=== PATIENT | female | born 1985 | race Caucasian/White ===

== ENCOUNTER 2022-02-07 05:48 | Day surgery (SDC) | payer OTHER ==
[~2022-02-07] VITALS: Ht 162.6 cm; Wt 51.8 kg
[~2022-02-07 05:48] MED LIST: MULTI VITAMIN1 EACH PO; PRILOSEC10 M1 PO; VITAMIN D310 MC4 PO
--- NOTE | 2022-02-07 08:45 | NUR ---
PT ALERT,ORIENTED AND SUPPORTED BY HER MEL. BOTH DEALING WELL WITH HAVING TO WAIT FOR AN EMERGENT SITUATION DR CHOUDHARY IS ATTENDING TO. PT SEEMS INFORMED, ALL QUESTIONS ASKED ANSWERED.DR CHOUDHARY IN TO VISIT WITH PT. GAVE PT BLESSING AND WILL FOLLOW
--- NOTE | 2022-02-07 10:38 | NUR ---
02/07/22 1038 [address] PATIENT ARRIVES TO PACU AWAKE OFF/ON, BUT VERY DROWSY. SLEEPING WHEN NOT STIMULATED. RESP EVEN AND UNLABORED, ROOM AIR SATS >92%. FOLLOWS COMMANDS TO DEEP BREATHE AND COUGH. DENIES PAIN OR NAUSEA. WARM BLANKETS GIVEN PER REQUEST.
--- NOTE | 2022-02-07 11:09 | NUR ---
PT ARRIVES TO DS TREATMENT ROOM FROM PACU VIA STRETCHER AWAKE AND ALERT. PT DENIES ANY NAUSEA AND IS PROVIDED CRACKERS AND TLINGIT & HAIDA SODA PER REQUEST. PT RATES PAIN IN LOWER ABD 2/10 "DULL, ACHEY, CRAMPING." ROBERT KEITA ON WARM, PT SPOUSE AT BEDSIDE. CALL LIGHT IN REACH, DC CRITERIA EXPLAINED.
--- NOTE | 2022-02-07 11:32 | NUR ---
1124: WELCH EMPTIED OF 100 MLS YELLOW URINE, 2 MLS CLEAR FLUID ASPIRATED FROM WELCH BALLOON AND WELCH EASILY REMOVED; PT TOLERATES WELL AND WOULD LIKE TO "SIT ON THE TOILET." PT SITS AT SIDE OF BED PRIOR TO STANDING, DENIES DIZZINESS OR NAUSEA WITH POSITION CHANGE AND AMBULATES WITH STEADY GAIT TO BATHROOM. PT ABLE TO VOID QS PINKISH-RED URINE WITH NO CLOTS PRESENT. NEW PERIPAD AND MESH PANTIES PROVIDED. PT BACK TO STRETCHER WITH ROBERT HUGGER AND BLANKETS IN PLACE. SPOUSE REMAINS AT BEDSIDE.
[2022-02-07] MEDS ORDERED: IBUPROFEN800 MG PO (11:49)
[2022-02-07] MEDS ORDERED: PERCOCET 5-3251 EACH PO (11:49)
[2022-02-07] MEDS ORDERED: ONDANSETRON ODT8 MG PO (11:50)
--- NOTE | 2022-02-07 13:00 | NUR ---
[id number]: PT UP TO BATHROOM WITH RN ASSIST, ABLE TO VOID 200 MLS PINK URINE WITH NO CLOTS PRESENT. PT STATES PAIN IS TOLERABLE AND IS FAVORABLE OF GETTING DRESSED AND DC HOME. PT SPOUSE REMAINS IN ROOM WHILE PT DRESSES SELF. [id number]: PT OPENS CURTAIN AND DC INSTRUCTIONS PRESENTED VERBALLY AND WRITTEN TO PT AND SPOUSE. IV REMOVED AT THIS TIME WITH COBAN PRESSURE DRESSING PLACED. PT ABLE TO TRANSFER SELF FROM STRETCHER TO WC WITH STEADY GAIT. PT DC FROM DS TREATMENT ROOM VIA WC TO SPOUSE WAITING IN PERSONAL VEHICLE AT MAIN HOSPITAL ENTRANCE TO HOME.
--- NOTE | 2022-02-09 09:40 | OR ---
[facility] [address] [place], [place] [address] Signed DATE OF OPERATION: 02/07/2022 SURGEON: Amy Crockett MD COLLEGE SPECIALIST: ROSY Grace DO. PREOPERATIVE DIAGNOSES: Pelvic pain, history of endometriosis. POSTOPERATIVE DIAGNOSES: Pelvic pain, history of endometriosis with pelvic adhesions. PROCEDURES: Total laparoscopic hysterectomy, bilateral salpingectomy, cystoscopy. ANESTHESIA: General ET. ESTIMATED BLOOD LOSS: 25 mL. DRAINS: Pacheco catheter. INDICATIONS AND FINDINGS: The patient is a 36-year-old female who was diagnosed with endometriosis approximately 9 months ago after a long history of pelvic pain and dysmenorrhea. She has been using the Mirena since that time and has recently developed an increase in her pain. Because of her history and the increase in her pain, she wished to proceed with definitive surgery. At the time of surgery, exam under anesthesia was normal. At the time of laparoscopy, she did have recurrent endometriosis over the posterior surface of the uterus and on the right pelvic sidewall. There were adhesions around the patient's left tube and ovary as well. DESCRIPTION OF PROCEDURE: The patient was prepped and draped in the dorsal lithotomy position. The weighted speculum was placed. The anterior lip of the cervix was visualized and grasped with a single-tooth tenaculum. The endocervical canal was then dilated and the IUD removed without any difficulty. The uterus sounded to 7 cm. The VCare cannula was then Electronically Signed By: AMY CROCKETT MD 02/09/22 0940 PATIENT NAME: ROXANNE DUFFY OPERATIVE REPORT DATE OF : 83 REPORT #: [id number] PHYSICIAN: AMY CROCKETT MD PCP: ANNA MARIO REPORT IS CONFIDENTIAL AND NOT TO BE RELEASED WITHOUT AUTHORIZATION [facility] [address] [place], [place] [address] Signed introduced and the balloon inflated at the fundus. The tenaculum and speculum were removed. The cup was fitted over the cervix and the locking cap fitted into place. Attention was directed above. The infraumbilical area was injected with 0.5% Marcaine plain. An incision was made with a knife. Each layer was then serially elevated and incised until the fascia was opened and identified and stay sutures of 0 Vicryl were placed. The peritoneum was opened bluntly. The Nohemi cannula was placed and the balloon inflated and it was tied into place. Placement of the scope confirmed proper positioning. The abdomen was inflated with the carbon dioxide. When the abdomen was appropriately distended, the secondary ports were placed. These wer placed laterally. Thse areas was transilluminated, injected with the Marcaine, incision made with a knife and the trocars placed under direct vision. The left-sided port was a 5 mm port. The right port was the Veress needle with the expanding port. The pelvis was visualized and the planned procedure appeared appropriate. The patient's right tube was then grasped and the LigaSure [place] device was used to serially coagulate and divide the mesosalpinx from the fimbriated end to the cornu where it was divided and removed. The utero-ovarian pedicle and round ligament pedicle were then serially coagulated and divided as well. Following this, the patient's left tube was evaluated. There were adhesions obscuring the distal tube and ovary though the ovary was normal beneath the adhesions. The left tube was then coagulated and divided at the cornu. The round ligament and utero-ovarian ligaments were serially coagulated and divided as well. The anterior leaf of the peritoneum was then incised and divided allowing for development of a partial bladder flap. The posterior leaf was then also divided with the LigaSure device. The uterine vessels were skeletonized and they were coagulated multiple times and divided. Following this, attention was redirected to the patient's right side and the anterior peritoneum was further incised completing the bladder flap area anteriorly. The posterior leaf was taken down as well and this completed the peritoneal dissection. The uterine vessels were then skeletonized and coagulated multiple times and divided. Further dissection was done both posteriorly and anteriorly. Attention was redirected to the patient's left side and further dissection was done around the uterine vessel area and at this point, it was felt that the specimen was ready to be freed from the cuff. The Sonicision device was then used to separate the specimen from the vaginal cuff. This was begun posteriorly and wrapped around on the patient's left and anteriorly and then restarted posteriorly and wrapped on around on the right and completed anteriorly. Following this, the specimen was retrieved vaginally. The vaginal canal was then packed with a glove with a lap tape allowing the pneumoperitoneum to reaccumulate. The abdomen was irrigated and inspected and the cuff appeared to be hemostatic. The cuff was then closed with a 0 PDS Stratafix. This was begun at the patient's right uterosacral ligament, taking care to incorporate the posterior and anterior vaginal mucosa and carried to the left uterosacral ligament and back to the center. The tube on the left was grasped distally at the ovary and the mesosalpinx serially coagulated and divided and most of the tube was removed. There appeared to be a small piece remaining in the midportion of the tube, Electronically Signed By: AMY CROCKETT MD 02/09/22 0940 PATIENT NAME: ROXANNE DUFFY OPERATIVE REPORT DATE OF : 83 REPORT #: [id number] PHYSICIAN: AMY CROCKETT MD PCP: ANNA MARIO REPORT IS CONFIDENTIAL AND NOT TO BE RELEASED WITHOUT AUTHORIZATION [facility] [address] [place] [id number] Signed which was not readily accessible because of the adhesions, but 90% of the tube was removed. There was a small cyst on the patient's right ovary which appeared to be a follicular cyst and this was not removed. Following this, the pelvis was again irrigated, inspected, and there was no evidence of any ongoing bleeding. There was no evidence of any remaining endometriosis. The instruments were removed from the abdomen after allowing as much as CO2 as possible to escape. The fascial incision was re-identified and closed with a running suture of 0 Vicryl. The skin incisions were closed with subcuticular sutures of 3-0 Vicryl. Attention was directed down below and the vaginal pack was removed. The cystoscopy was then begun. She had received IV fluorescein. The Pacheco catheter was removed and cystoscopy was done using the 30-degree scope. The bladder was filled and there was no evidence of any bladder injury. There was prompt spill of fluorescein stained urine from both of the ureteral orifices. Following this, the bladder was drained and the Pacheco catheter replaced. All sponge and needle counts were correct. She tolerated the procedure well and was taken to the recovery room in good condition. MD DISHA QuinteroW/[id number] /[id number] cc: Sinan Garce DO Copies: SINAN GRACE (ROSY) ~ Electronically Signed By: AMY CROCKETT MD 02/09/22 0940 PATIENT NAME: ROXANNE DUFFY OPERATIVE REPORT DATE OF : 83 REPORT #: [id number] PHYSICIAN: AMY CROCKETT MD PCP: ANNA MARIO REPORT IS CONFIDENTIAL AND NOT TO BE RELEASED WITHOUT AUTHORIZATION
== END 2022-02-07 12:15 | disposition home or self-care (01) ==
LOC: DS 05:48
PROVIDERS: ATTEND Obstetrics & Gynecology
PROC: 0UT94ZZ Resection of Uterus, Percutaneous Endoscopic Approach (ICD-10-PCS; principal; 2022-02-07 07:30)
PROC: 0UT74ZZ Resection of Bilateral Fallopian Tubes, Percutaneous Endoscopic Approach (ICD-10-PCS; 2022-02-07 07:30)
DX: N83.8 Other noninflammatory disorders of ovary, fallopian tube and broad ligament (principal); R10.2 Pelvic and perineal pain
CPT/HCPCS: 88307; J0131; J0690; J1100; J1170; J1644; J1885; J2001; J2250; J2405; J2704; J2765; J3010; J7121